=== PATIENT | female | born 1995 | race Caucasian/White ===

== ENCOUNTER 2017-03-31 13:51 | Emergency (ER) | payer SELFPAY ==
[~2017-03-31] VITALS: Ht 152.4 cm; Wt 67.6 kg
[~2017-03-31 13:51] MED LIST: DPPRI400 INJ
[2017-03-31 13:54] VITALS: TEMP 36.7; Ht 152.4 cm; Wt 67.6 kg
[2017-03-31] MEDS ORDERED: BCTROWC EXT (14:28)
[2017-03-31] MEDS ORDERED: DOXY-300 PO (14:28)
--- NOTE | 2017-03-31 14:29 | EMERGENCY ROOM VISIT NOTE ---
History First contact with patient: 14:07 Chief Complaint: WOUND INFECTION Stated Complaint: LARGE PAINFUL BUMP ON LEG Nursing Triage Summary: reddened area to right inner thigh sx x2 days History of Present Illness The patient is a 21 year old female who presents to the Emergency Room via private vehicle with complaints of "large painful bump on leg". The patient states that 2 days ago she noticed redness on the right inner thigh. She states that she believes she was bitten by a bug but is unable to identify if this happened. Her tetanus is up-to-date. She denies any recent tick bites. She notes that she does stay inside and is not outside much. She denies any nausea, vomiting, fevers, chills. She denies any history of Lyme disease. She denies any chance of . Review of Systems A complete 6-point Review of Systems was discussed with the patient, with pertinent positives and negatives listed in the History of Present Illness. All remaining Review of Systems questions can be considered negative unless otherwise specified. Past Medical/Surgical History Medical Problems: (1) Bronchitis (2) Pneumonia Family History Cancer Diabetes mellitus Heart disease Hypertension Social History Smoking Status: Former Smoker Alcohol Use: none Drug Use: none Marital Status: single Housing Status: lives with friends Occupation Status: employed Current/Historical Medications Scheduled Doxycycline (Monohydrate) (Doxycycline), 100 MG PO BID Medroxyprogesterone Acetate (Depo-Provera), 400 MG INJ Q3M Mupirocin (Bactroban 2% Oint), 1 APPLN EXT DAILY Physical Exam Vital Signs Date Time Temp Pulse Resp B/P (MAP) Pulse Ox O2 Delivery O2 Flow Rate FiO2 03/31/17 14:56 65 16 126/67 99 03/31/17 13:54 36.7 89 18 108/71 98 Room Air Physical Exam VITAL SIGNS - Vital signs and nursing notes were reviewed. Afebrile, normotensive, non-tachycardic and is saturating well on room air 98%. GENERAL -21-year-old female appearing her stated age who is in no acute distress. Communicates well with provider and answers questions appropriately. SKIN - there is a 6 cm x 5 cm circular erythematous rash on the patient's right inner thigh. There is a small indurated center that is nonfluctuant. No evidence of abscess. No drainage. There is slight tenderness to palpation. Medical Decision & Procedures Medical Decision Patient was seen and evaluated as above. She presents to us today with a 2 day history of left inner thigh pain, erythema with induration. No evidence of erythema migrans or Lyme disease. No evidence of abscess on examination, however there is a red indurated center. Patient was informed that it'll be treated as cellulitis, and discharged home on doxycycline as well as mupirocin ointment. She has had similar presentation in the past and managed on Bactrim and same ointment. The patient does have history of MRSA, and previous culture studies were reviewed. Tetracycline is sensitive, therefore believe doxycycline is appropriate. This will be a ten-day course. Patient was educated upon management today's findings, and the erythema this region was outlined with a felt tip pen. She was educated upon worrisome symptoms which to return, felt stable for outpatient management, had questions prior to discharge, and was discharged home in good condition. In the evaluation and treatment of this patient following differential diagnoses were entertained: Cellulitis, abscess, localized skin reaction, sepsis , SIRS, among others. Impression Primary Impression: Cellulitis of left thigh Departure Information Dispostion Home / Self-Care Condition GOOD Prescriptions Mupirocin (Bactroban 2% Oint) 66 Appln/22 Gm Oint 1 APPLN EXT DAILY for 10 Days, #1 TUBE Prov: Manuel Au PA-C 03/31/17 Doxycycline (Monohydrate) (Doxycycline) 100 Mg Cap 100 MG PO BID for 10 Days, #20 TABS Prov: Manuel Au PA-C 03/31/17 Referrals No Doctor, Assigned (PCP) Patient Instructions My [facility] Additional Instructions You were seen in the emergency Department for an infection on your leg. At this time I do not appreciate any area that needs to be drained. You have been prescribed Doxycycline to be taken as prescribed. This is an antibiotic. All antibiotics have the potential to cause diarrhea. Stop this medication and contact a medical provider if you were to develop any significant adverse side effects including: wheezing, shortness of breath, passing out, vomiting, or a diffuse rash. Always take antibiotics as directed and COMPLETE the ENTIRE course regardless of the improvement of your symptoms. Protect yourself with sunscreen while on this antibiotic as it increases your skin's sensitivity to the light and cause bad sunburns. In addition, you should be sure to take this pill after eating. Make sure the pill is completely swallowed as this medication can cause irritation to the lining of the esophagus. Do NOT drink milk or eat anything with large amounts of Calcium in them 1 hour prior to taking this medication as this will decrease the effectiveness of the medication. You've also been prescribed Bactroban ointment. Please apply this once daily. This is for 10 days. Please return to the emergency department if this worsens or if you develop any fevers, chills, nausea, vomiting or any new/concerning symptoms. Please follow up with your family doctor in the near future for a follow up regarding today's visit.
[2017-03-31 14:56] VITALS: BP 126/67; PULSE 65; O2SAT 99
== END 2017-03-31 14:58 | disposition home or self-care (01) ==
LOC: C.EDB 13:52 → C.EDD 14:58
DX: L03.116 Cellulitis of left lower limb (principal); Z83.3 Family history of diabetes mellitus; Z82.49 Family history of ischemic heart disease and other diseases of the circulatory system; Z87.891 Personal history of nicotine dependence

== ENCOUNTER 2017-04-03 09:54 | Emergency (ER) | payer SELFPAY ==
[~2017-04-03] VITALS: Ht 152.4 cm; Wt 67.4 kg
[~2017-04-03 09:54] MED LIST changes: +BCTROWC EXT; +DOXY-300 PO
[2017-04-03 09:59] VITALS: BP 112/72; PULSE 83; TEMP 36.4; O2SAT 99; Ht 152.4 cm; Wt 67.4 kg
[2017-04-03] MEDS ORDERED: XYLOCAINE 1%/SOD BICARB 20 ML VIAL INFIL ONE ×2 (10:21→10:30)
--- NOTE | 2017-04-03 10:54 | EMERGENCY ROOM VISIT NOTE ---
History First contact with patient: 10:03 Chief Complaint: INFECTION Stated Complaint: INFECTION BUMP ON LEG, GETTING LARGER Nursing Triage Summary: pt tx here sat for abcess on inner R thigh, given abx and cream now with increased pain and "head" History of Present Illness The patient is a 21 year old female who presents to the Emergency Room with complaints of worsening swelling and pain of an infection of the right inner thigh. The patient was here on Sunday and diagnosed with cellulitis. She was treated with doxycycline and mupirocin ointment. The patient just got her prescription for the mupirocin filled yesterday, but has been taking doxycycline since Sunday. The patient does have a history of MRSA. The patient reports that she does have redness surrounding the wound that has improved, however now reports that the center has come to a head. She reports that walking is difficult because her thighs rub, and increases her pain to a 5 out of 10. She denies any fevers or chills. Review of Systems 10 system review was performed and was negative except for pertinent positives and negatives as indicated in history of present illness Past Medical/Surgical History Medical Problems: (1) Bronchitis (2) Pneumonia Family History Cancer Diabetes mellitus Heart disease Hypertension Social History Smoking Status: Former Smoker Alcohol Use: none Drug Use: none Marital Status: single Housing Status: lives with friends Occupation Status: employed Current/Historical Medications Scheduled Doxycycline (Monohydrate) (Doxycycline), 100 MG PO BID Medroxyprogesterone Acetate (Depo-Provera), 400 MG INJ Q3M Mupirocin (Bactroban 2% Oint), 1 APPLN EXT DAILY Physical Exam Vital Signs Date Time Temp Pulse Resp B/P (MAP) Pulse Ox O2 Delivery O2 Flow Rate FiO2 04/03/17 09:59 36.4 83 18 112/72 99 Room Air Physical Exam CONSTITUTIONAL: Healthy and well nourished. Alert and oriented X 3 with positive affect. HEENT: Normocephalic, atraumatic. Pupils equal, round and reactive. MUSCULOSKELETAL: Patient has no discomfort with internal or external rotation of the right hip. Distal pulses are intact. INTEGUMENTARY: Examination of the right mid inner thigh shows a marble-sized area of induration with unruptured central purulence. She also has minimal surrounding erythema that the patient reports has subjectively improved. There is no fluctuance at the center of the wound to suggest sizable abscess formation. NEUROLOGIC: Right lower extremity is sensory intact. Medical Decision & Procedures Procedure I&D procedure was performed by our physician respiratory care assistant student under my direct supervision, and after receiving verbal consent from the patient. Using buffered 1% lidocaine without epinephrine, good local anesthesia was administered. The patient was in painted with iodine. Using a #11 scalpel, an incision was made with approximately 0.5 mL of purulence expressed. Cultures were collected. The wound was then irrigated, then a small amount of 0.25 inch packing was loosely placed in the wound, and covered with a bacitracin dressing. The patient tolerated the procedure well. ED Course Patient history and physical exam were performed. Nurse's notes were reviewed. Vital signs were reviewed and normal. I did discuss further treatment with the patient, including conservative treatment with application of moist compresses and ointment dressings. I also discussed performing I&D procedure to drain what little pus is expected at the central wound. I also explained that opening the wound would allow an area for the infection to drain. The patient elected I&D procedure, which was performed under local anesthesia. Cultures were collected as well, given the patient's prior history of MRSA. The patient was instructed to complete all oral antibiotics as previous he prescribed. She was also given instructions for packing removal in 48 hours. She was instructed to return to the emergency department for any progressively worsening infection, swelling, pain or fever. The patient reports that she does not have insurance, and would prefer not to come back unless needed. She was encouraged to alternate ibuprofen and Tylenol as needed for pain. The patient was happy with plan of care, voiced understanding of all discharge instructions, and denied any significant discomfort at the completion of her procedure. Medical Decision Medication Reconcilliation Current Medication List: was personally reviewed by me Blood Pressure Screening Patient's blood pressure: Normal blood pressure Impression Primary Impression: Right inner thigh abscess Departure Information Referrals No Doctor, Assigned (PCP) Patient Instructions My [facility]
== END 2017-04-03 10:57 | disposition home or self-care (01) ==
LOC: C.EDB 09:56 → C.EDA 10:57
DX: L02.415 Cutaneous abscess of right lower limb (principal); Z86.14 Personal history of Methicillin resistant Staphylococcus aureus infection; Z87.01 Personal history of pneumonia (recurrent); Z87.891 Personal history of nicotine dependence; Z83.3 Family history of diabetes mellitus; Z82.49 Family history of ischemic heart disease and other diseases of the circulatory system